=== PATIENT | male | born 1955 | race Caucasian/White ===

== ENCOUNTER 2018-08-31 21:28 | Emergency (ER) | payer MEDICARE, SELFPAY ==
[2018-08-31 21:33] VITALS: PULSE 88; RESP 22; O2SAT 96
[2018-08-31] MEDS: ALBUTEROL/IPRATROPIUM 3 ML AMPUL INH (21:33)
[2018-08-31] MEDS: ALBUTEROL 2.5 MG/3 ML NEB (ADULT) INH ×2 (21:33→23:12)
--- NOTE | 2018-08-31 21:38 | DI.RAD.S_ITS ---
PROCEDURE: XR CHEST 1V INDICATIONS: short of breath TECHNIQUE: One view of the chest was acquired. COMPARISON: [facility], , CHEST 2 VIEW, 09/27/2017, 5:50. FINDINGS: Surgical changes and devices: None. Lungs and pleura: No pleural effusions or pneumothorax. Lungs are clear. Mediastinum: Mediastinal contours appear normal. Heart size is normal. Bones and chest wall: No suspicious bony lesions. Overlying soft tissues appear unremarkable. IMPRESSION: No acute process. Dictated by: Ale Damon M.D. on 08/31/2018 at 21:59 Approved by: Ale Damon M.D. on 08/31/2018 at 21:59
[2018-08-31 21:39] VITALS: BP 149/86; PULSE 96; RESP 20; TEMP 36.6; O2SAT 94
[2018-08-31] MEDS: SODIUM CHLORIDE 0.9% 1,000 ML 1000 ML IV (22:13)
[2018-08-31] MEDS: methylPREDNISolone 125 MG/2 ML VIAL IV (22:14)
[2018-08-31 22:16] LABS: Add Manual Diff / Slide Review NO; Basophils Percent Auto 0.4 % (0-2); Eosinophils Percent Auto 8.4 % (2-4); Hematocrit 42.8 % (41-53); Hemoglobin 14.4 g/dL (13.5-17.5); Lymphocytes Percent Auto 13.8 % (25-40); Mean Corpuscular HGB Conc 33.7 % (30-36); Monocytes Percent Auto 10.6 % (3-14); Neutrophils Absolute Auto 6700 /uL (1500-7000); Neutrophils Percent Auto 66.8 % (50-75); Platelet Count 387 X10^3/uL (150-400); Red Cell Distribution Width 13.7 % (11.6-14.8)
[2018-08-31 22:30] VITALS: BP 150/68; PULSE 90; RESP 27; O2SAT 93
[2018-08-31 22:34] LABS: Prothrombin Time 11.6 SECONDS (10.1-12.7)
[2018-08-31 22:37] LABS: PTT Partial Thromboplastin Tim 33 SECONDS (26.4-36.2)
[2018-08-31 22:39] LABS: Alanine Aminotransferase 29 IU/L (21-72); Albumin 4.3 g/dL (3.5-5.0); Albumin Globulin Ratio 1.4 (1.0-2.8); Alkaline Phosphatase 67 U/L (38-126); Aspartate Aminotransferase 27 IU/L (17-59); BUN Creatinine Ratio 23.3 (6-22); Bilirubin Total 0.9 mg/dL (0.2-1.3); Blood Urea Nitrogen 21 mg/dL (9-20); Calcium 9.2 mg/dL (8.4-10.2); Carbon Dioxide 22 mmol/L (22-32); Chloride 105 mmol/L (98-107); Creatine Kinase 229 U/L (55-170); Estimated Glomerular Filt Rate > 60.0 mL/min (>60); Glucose 96 mg/dL (80-110); HEMOLYSIS < 15 (0-50); Magnesium 1.9 mg/dL (1.6-2.3); Potassium 4.3 mmol/L (3.4-5.1); Sodium 141 mmol/L (137-145); Total Protein 7.3 g/dL (6.3-8.2)
[2018-08-31 22:46] LABS: B Type Natriuretic Peptide < 100 (<100)
[2018-08-31 22:53] LABS: CKMB % Relative Index 0.8 % (1.5-5.0); Creatine Kinase MB 1.77 ng/mL (<2.37); Troponin I < 0.012 ng/mL (0.01-0.034)
[2018-08-31 22:57] LABS: Procalcitonin < 0.05 ng/mL (<0.5)
--- NOTE | 2018-08-31 23:00 | ED_ITS ---
HPI - SOB/Dyspnea General Chief Complaint: Shortness of Breath/Dyspnea Stated Complaint: cant breathe Time Seen by Provider: 08/31/18 21:37 Source: patient Mode of arrival: ambulatory Limitations: no limitations History of Present Illness Patient is a 63-year-old male history of COPD presenting with increasing shortness of breath. He says it has been getting worse over the last few days mostly whenever he goes outside. He has been giving himself his DuoNeb at home he said he had given himself 10 today does not feel like it is helping. He denies any fever he does have some chest tightness high. More sputum production than normal. Typically when he gets like this he is prednisone and antibiotics and gets better. He does also have significant history for coronary artery disease but he does not feel like this is heart pain. No swelling in his legs. He has chronic orthopnea not any worse than normal. MD Complaint: shortness of breath Onset (ago): day(s) Severity: moderate Relieving factors: nothing Exacerbating factors: nothing Related Data Home Medications Medication Instructions Recorded Confirmed aspirin 325 mg PO QDAY #0 06/07/11 ALBUTEROL SULFATE (#VENTOLIN HFA) 0.09 mg IH PRN #0 07/18/11 clopidogrel [Plavix] #0 07/02/16 tiotropium bromide [Spiriva with #0 09/27/17 HandiHaler] Previous Rx's Medication Instructions Recorded hydrocodone-acetaminophen [[place]] 1 - 2 tab PO Q6H PRN #10 tab 07/02/16 tamsulosin [Flomax] 0.4 mg PO QDAY #20 cap 09/11/16 Spacer: Inhaler Spacer Device units #1 09/27/17 doxycycline hyclate 100 mg PO Q12H #20 cap 09/27/17 prednisone 10 mg PO SEE INSTRUCTIONS 12 Days 09/27/17 #0 tab levofloxacin [Levaquin] 750 mg PO DAILY #5 tab 08/31/18 prednisone 50 mg PO DAILY #5 tab 08/31/18 Allergies Allergy/AdvReac Type Severity Reaction Status Date / Time No Known Drug Allergies Allergy Verified 08/31/18 21:39 Review of Systems Review of Systems GENERAL: Denies chills, fatigue, malaise, fever, sweats, travel HEENT: Denies sinus pain, ear pain, sore throat, difficulty swallowing, neck pain RESPIRATORY: See HPI CARDIOVASCULAR: Denies chest pain, palpitations, orthopnea, edema GASTROINTESTINAL: Denies nausea, vomiting, abdominal pain, diarrhea, constipation, melena. : Denies dysuria, frequency, incontinence, hematuria, urinary retention, flank pain. MUSCULOSKELETAL: Denies weakness, joint pain, or bony pain SKIN: No rash, no erythema, no pruritus NEUROLOGIC: Denies weakness, dizziness, headache, numbness, change in speech, confusion PSYCHIATRIC: No concerning psychosocial issues. 12 point review of systems is negative except for those stated above and HPI PFSH Medical History COPD (chronic obstructive pulmonary disease) (Acute) Coronary artery disease (Acute) Social History substance use type: does not use Exam Initial Vital Signs Initial Vital Signs: Vital Signs Pulse Rate 88 08/31/18 21:33 Respiratory Rate 22 08/31/18 21:33 Pulse Oximetry 96 08/31/18 21:33 GENERAL: Alert male appears in mild distress HEENT: Head atraumatic,EOMI, pupils reactive CARDIOVASCULAR: Regular rate and rhythm without murmurs, rubs or gallops. RESPIRATORY: No audible wheezes as difficulty speaking in full sentences but is able to do so no accessory muscle use ABDOMEN: Soft, nontender. Normoactive bowel sounds all 4 quadrants. No guarding or rebound. EXTREMITIES: Normal range of motion, no clubbing or edema. Neurovascularly intact NEUROLOGICAL: Alert and oriented x4.Normal gait and speech. Cranial nerves II through XII grossly intact. SKIN: Warm, dry, no laceration, no petechiae, no rashes or lesions. Course Orders Ordered: ED Orders 08/31/18 21:37 Consult to Respiratory Therapy Evaluate & Treat EKG-12 Lead Stat 08/31/18 21:38 XR chest 1V Stat 08/31/18 22:09 B Type Natriuretic Peptide Stat Complete Blood Count AUTO DIFF Stat Comprehensive Metabolic Panel Stat Lactate (Lactic Acid) Stat Magnesium Stat Partial Thromboplastin Time Stat Procalcitonin Stat Prothrombin Time INR Stat Troponin & CK Cardiac Panel Stat 08/31/18 22:25 Blood Culture Stat Discontinued Medications Albuterol (Ventolin) 2.5 mg INH NOW ONE Stop: 08/31/18 21:38 Last Admin: 08/31/18 21:33 Dose: 2.5 mg Albuterol (Ventolin Hfa Prepack) 1 box MISC SEEINSTR ONE Stop: 08/31/18 23:05 Last Admin: 08/31/18 23:09 Dose: 1 box Albuterol (Ventolin) 2.5 mg INH NOW ONE Stop: 08/31/18 23:05 Last Admin: 08/31/18 23:12 Dose: 2.5 mg Albuterol/Ipratropium (Duoneb) 3 ml INH NOW ONE Stop: 08/31/18 21:38 Last Admin: 08/31/18 21:33 Dose: 3 ml Albuterol/Ipratropium (Duoneb) 3 ml INH NOW ONE Stop: 08/31/18 21:38 Sodium Chloride (Normal Saline 0.9%) 1,000 mls @ 1,000 mls/hr IV BOLUS ONE Stop: 08/31/18 23:06 Last Infusion: 08/31/18 23:40 Dose: 0 mls/hr Admin: 08/31/18 22:13 Dose: 1,000 mls/hr Levofloxacin (Levaquin) 750 mg PO NOW ONE Stop: 08/31/18 23:05 Last Admin: 08/31/18 23:12 Dose: 750 mg Methylprednisolone (Solu-Medrol 125 Mg Vial) 125 mg IV NOW ONE Stop: 08/31/18 21:38 Last Admin: 08/31/18 22:14 Dose: 125 mg Vital Signs - 8 hr 08/31/18 21:33 08/31/18 21:39 08/31/18 22:30 Temperature 97.8 F Pulse Rate 88 96 H 90 Respiratory Rate 22 20 27 H Blood Pressure 149/86 H Blood Pressure [Right Arm] 150/68 H Pulse Oximetry 96 94 93 08/31/18 23:01 08/31/18 23:16 08/31/18 23:48 Temperature Pulse Rate 90 86 90 Respiratory Rate 21 18 14 Blood Pressure Blood Pressure [Right Arm] 140/72 148/79 H Pulse Oximetry 95 96 94 MDM - SOB/Dyspnea Lab Data Attestation: I reviewed the patient's lab results. Result diagrams: 08/31/18 22:09 08/31/18 22:09 Lab Results 08/31/18 08/31/18 08/31/18 Range/Units 22:09 22:09 22:09 WBC 10.0 (4.5-11.0) X10^3/uL RBC 4.80 (4.5-5.9) X10^6/uL Hgb 14.4 (13.5-17.5) g/dL Hct 42.8 (41-53) % MCV 89.0 (80-100) fL MCH 30.0 (26-34) PG MCHC 33.7 (30-36) % RDW 13.7 (11.6-14.8) % Plt Count 387 (150-400) X10^3/uL Neut % (Auto) 66.8 (50-75) % Lymph % (Auto) 13.8 L (25-40) % Kay % (Auto) 10.6 (3-14) % Eos % (Auto) 8.4 H (2-4) % Baso % (Auto) 0.4 (0-2) % Neut # (Auto) 6700 (0368-0779) /uL PT 11.6 (10.1-12.7) SECONDS INR 1.0 (0.9-1.3) APTT 33 (26.4-36.2) SECONDS Sodium (137-145) mmol/L Potassium (3.4-5.1) mmol/L Chloride (98-107) mmol/L Carbon Dioxide (22-32) mmol/L BUN (9-20) mg/dL Creatinine (0.66-1.25) mg/dL Estimated GFR (>60) mL/min BUN/Creatinine Ratio (6-22) Glucose (80-110) mg/dL Lactate (0.7-2.1) mmol/L Calcium (8.4-10.2) mg/dL Magnesium 1.9 (1.6-2.3) mg/dL Total Bilirubin (0.2-1.3) mg/dL AST (17-59) IU/L ALT (21-72) IU/L Alkaline Phosphatase (38-126) U/L Total Creatine Kinase 229 H (55-170) U/L CK-MB (CK-2) 1.77 (<2.37) ng/mL CK-MB (CK-2) Rel Index 0.8 L (1.5-5.0) % Troponin I < 0.012 (0.01-0.034) ng/mL B-Natriuretic Peptide < 100 (<100) Total Protein (6.3-8.2) g/dL Albumin (3.5-5.0) g/dL Globulin (1.7-4.1) g/dL Albumin/Globulin Ratio (1.0-2.8) Procalcitonin (<0.5) ng/mL 08/31/18 08/31/18 08/31/18 Range/Units 22:09 22:09 22:09 WBC (4.5-11.0) X10^3/uL RBC (4.5-5.9) X10^6/uL Hgb (13.5-17.5) g/dL Hct (41-53) % MCV (80-100) fL MCH (26-34) PG MCHC (30-36) % RDW (11.6-14.8) % Plt Count (150-400) X10^3/uL Neut % (Auto) (50-75) % Lymph % (Auto) (25-40) % Kay % (Auto) (3-14) % Eos % (Auto) (2-4) % Baso % (Auto) (0-2) % Neut # (Auto) (1718-0227) /uL PT (10.1-12.7) SECONDS INR (0.9-1.3) APTT (26.4-36.2) SECONDS Sodium 141 (137-145) mmol/L Potassium 4.3 (3.4-5.1) mmol/L Chloride 105 (98-107) mmol/L Carbon Dioxide 22 (22-32) mmol/L BUN 21 H (9-20) mg/dL Creatinine 0.90 (0.66-1.25) mg/dL Estimated GFR > 60.0 (>60) mL/min BUN/Creatinine Ratio 23.3 H (6-22) Glucose 96 (80-110) mg/dL Lactate 1.0 (0.7-2.1) mmol/L Calcium 9.2 (8.4-10.2) mg/dL Magnesium (1.6-2.3) mg/dL Total Bilirubin 0.9 (0.2-1.3) mg/dL AST 27 (17-59) IU/L ALT 29 (21-72) IU/L Alkaline Phosphatase 67 (38-126) U/L Total Creatine Kinase (55-170) U/L CK-MB (CK-2) (<2.37) ng/mL CK-MB (CK-2) Rel Index (1.5-5.0) % Troponin I (0.01-0.034) ng/mL B-Natriuretic Peptide (<100) Total Protein 7.3 (6.3-8.2) g/dL Albumin 4.3 (3.5-5.0) g/dL Globulin 3.0 (1.7-4.1) g/dL Albumin/Globulin Ratio 1.4 (1.0-2.8) Procalcitonin < 0.05 (<0.5) ng/mL Imaging Data Chest x-ray: Radiologist's impression: PROCEDURE: XR CHEST 1V INDICATIONS: short of breath TECHNIQUE: One view of the chest was acquired. COMPARISON: [facility], CHEST 2 VIEW, 09/27/2017, 5:50. FINDINGS: Surgical changes and devices: None. Lungs and pleura: No pleural effusions or pneumothorax. Lungs are clear. Mediastinum: Mediastinal contours appear normal. Heart size is normal. Bones and chest wall: No suspicious bony lesions. Overlying soft tissues appear unremarkable. IMPRESSION: No acute process. Dictated by: Ale Damon M.D. on 08/31/2018 at 21:59 ECG Data Attestation: I personally reviewed and interpreted this ECG as follows: Prior ECG tracings: available for review Interpretation: Normal sinus rhythm rate 89 persistent Q-waves in lead 3 but much improved from [place] [address] elevations no T-wave inversions MDM Narrative Medical decision making narrative: Patient overall is feeling much better after the steroids and bronchodilator treatment. He is given albuterol pre Pack he says his is at out. Discharge Plan Departure Patient Disposition: Home Clinical Impression: Acute exacerbation of chronic obstructive pulmonary disease (COPD) Discharge Date/Time: 08/31/18 23:55 Interventions: ED Discharge Assessment Last Done: 08/31/18 23:59 Instructions: Chronic Obstructive Pulmonary Disease Activity Restrictions/Additional Instructions: *You have been diagnosed with COPD exacerbation *What to do: *Continue to take medications as directed Prednisone 50 mg once a day for 5 days Levaquin 1 tab once a day 5 days *Follow up with your primary care provider in 2-3 days *Return to ER if you should have increasing shortness of breath, increasing chest or any new, worsening or concerning symptoms Prescriptions: New prednisone 50 mg tablet 50 mg PO DAILY Qty: 5 RF: 0 levofloxacin [Levaquin] 750 mg tablet 750 mg PO DAILY Qty: 5 RF: 0 No Action aspirin 325 MG tablet,delayed release (DR/EC) 325 mg PO QDAY Qty: 0 RF: 0 ALBUTEROL SULFATE (#VENTOLIN HFA) 0.09 mg IH PRN Qty: 0 RF: 0 clopidogrel [Plavix] 75 MG tablet Qty: 0 RF: 0 hydrocodone-acetaminophen [[place]] 5 MG/325 MG tablet 1 - 2 tab PO Q6H PRNQty: 10 RF: 0 tamsulosin [Flomax] 0.4 MG capsule,extended release 24hr 0.4 mg PO QDAY Qty: 20 RF: 0 tiotropium bromide [Spiriva with HandiHaler] 18 MCG capsule, w/inhalation device Qty: 0 RF: 0 prednisone 10 MG tablet 10 mg PO SEE INSTRUCTIONS 12 Days Qty: 0 RF: 0 doxycycline hyclate 100 MG capsule 100 mg PO Q12H Qty: 20 RF: 0 Spacer: Inhaler Spacer Device Qty: 1 RF: 0
[2018-08-31 23:01] VITALS: BP 140/72; PULSE 90; RESP 21; O2SAT 95
[2018-08-31] MEDS: ALBUTEROL HFA PREPACK 1 BOX MISC (23:09)
[2018-08-31] MEDS: levoFLOXacin 250 MG TABLET 750 MG PO (23:12)
[2018-08-31 23:16] VITALS: PULSE 86; RESP 18; O2SAT 96
[2018-08-31 23:48] VITALS: BP 148/79; PULSE 90; RESP 14; O2SAT 94
== END 2018-08-31 23:55 | disposition home or self-care (01) ==
PROVIDERS: Emergency Provider Emergency Medicine; PCP Physician Assistant Medical
DX: J44.1 Chronic obstructive pulmonary disease with (acute) exacerbation (principal)
CPT/HCPCS: 36415; 36591; 71045; 80053; 82550; 82553; 83605; 83735; 83880; 84145; 84484; 85025; 85610; 85730; 87040; 93005; 94640; 96361; 96374; 99283; 99285; J2930; J7613

== ENCOUNTER 2018-10-24 17:28 | Emergency (ER) | payer MEDICARE, SELFPAY ==
[2018-10-24 17:34] VITALS: BP 159/97; PULSE 96; RESP 22; TEMP 36.4; O2SAT 96
--- NOTE | 2018-10-24 17:45 | ED.SOB ---
HPI - SOB/Dyspnea <Kavita Castro PA-C - Last Filed: 10/24/18 21:20> General Chief Complaint: Shortness of Breath/Dyspnea Stated Complaint: trouble breathing Time Seen by Provider: 10/24/18 17:44 Source: patient and family Mode of arrival: ambulatory Limitations: no limitations History of Present Illness This 63-year-old male comes to ED due to COPD exacerbation. He states this is typical of his exacerbations. He was out having dinner and became acutely more short of breath. He used his DuoNeb in the car (carries a nebulizer machine), and states this has helped. He has had a gradually worsening flare for some time now, his thinks about 2 or 3 weeks as he has gone through his monthly rescue inhaler in about that time. He has been off of Spiriva for several months due to lack of affordability, and has had 2 flare-ups since then where he will have more tight chest, dyspnea, and wheeze. He denies any new symptoms such as chest pain, fever, recent illness or exposures. He does have more productive cough. He has not had any new swelling in his arms or legs nor pain in the extremities. He the the states that he has not been able to sleep flat for a long time and get short of breath at night, but this is due to back problems and sleep apnea. He states not related to his COPD exacerbations. His rescue inhaler and nebulizers do help him when he has flares. Related Data Home Medications Medication Instructions Recorded Confirmed aspirin 325 mg PO QDAY #0 06/07/11 ALBUTEROL SULFATE (#VENTOLIN HFA) 0.09 mg IH PRN #0 07/18/11 clopidogrel [Plavix] #0 07/02/16 tiotropium bromide [Spiriva with #0 09/27/17 HandiHaler] Previous Rx's Medication Instructions Recorded hydrocodone-acetaminophen [Wild Horse] 1 - 2 tab PO Q6H PRN #10 tab 07/02/16 tamsulosin [Flomax] 0.4 mg PO QDAY #20 cap 09/11/16 Spacer: Inhaler Spacer Device units #1 09/27/17 doxycycline hyclate 100 mg PO Q12H #20 cap 09/27/17 prednisone 10 mg PO SEE INSTRUCTIONS 12 Days 09/27/17 #0 tab levofloxacin [Levaquin] 750 mg PO DAILY #5 tab 08/31/18 prednisone 50 mg PO DAILY #5 tab 08/31/18 albuterol sulfate 2 puff INHALATION Q4-6H PRN #8.5 10/24/18 gram doxycycline monohydrate 100 mg PO BID 7 Days #14 cap 10/24/18 ipratropium-albuterol 3 ml INHALATION Q4-6H PRN #180 ml 10/24/18 prednisone 40 mg PO DAILY #10 tab 10/24/18 Allergies Allergy/AdvReac Type Severity Reaction Status Date / Time No Known Drug Allergies Allergy Verified 08/31/18 21:39 Review of Systems <Kavita Castro PA-C - Last Filed: 10/24/18 21:20> Review of Systems ROS Unobtainable: All systems reviewed & are unremarkable except as noted in HPI and below PFSH <Kavita Castro PA-C - Last Filed: 10/24/18 21:20> Medical History COPD (chronic obstructive pulmonary disease) (Chronic) Coronary artery disease (Chronic) TARIQ (obstructive sleep apnea) (Chronic) Prostate cancer (Chronic) Family History Other No pertinent family history Social History substance use type: does not use Family History Other No pertinent family history Social History substance use type: does not use Comment: Former smoker Exam <MENDY Lin Last Filed: 10/24/18 21:20> Narrative Exam Narrative: GENERAL APPEARANCE: Patient sitting comfortably, in no distress. HEENT: PERRL, EOMI, normal oropharynx NECK/THYROID: Neck supple, no JVD, no cervical lymphadenopathy. LUNGS: Coarse breath sounds with generalized wheezes and rhonchi, no crackles. Intermittent cough on exam. Able to speak in complete sentences HEART: RRR without murmur, nl S1, S2, no S3 or S4. EXTREMITIES: No cyanosis, no edema, no calf tenderness Initial Vital Signs Initial Vital Signs: Vital Signs Temperature 97.6 F 10/24/18 17:34 Pulse Rate 96 H 10/24/18 17:34 Respiratory Rate 22 10/24/18 17:34 Blood Pressure 159/97 H 10/24/18 17:34 Pulse Oximetry 96 10/24/18 17:34 <Umair Lozoya DO - Last Filed: 10/24/18 22:32> Initial Vital Signs Initial Vital Signs: Vital Signs Temperature 97.6 F 10/24/18 17:34 Pulse Rate 96 H 10/24/18 17:34 Respiratory Rate 22 10/24/18 17:34 Blood Pressure 159/97 H 10/24/18 17:34 Pulse Oximetry 96 10/24/18 17:34 Course <Kavita Castro PA-C - Last Filed: 10/24/18 21:20> Additional Information: Following nebulizer treatments and medications, patient is feeling markedly improved which is typical for him he says. He still had wheezes but moving substantially more air. He will continue doxycycline tomorrow along with nebulizer and albuterol as needed and prednisone. He agrees to follow up with PCP this week for recheck to determine steroid taper. Also advised to check on patient assistance for Spiriva as he has had more numerous in severe exacerbations without this. He agreed to return if any acutely worsening symptoms again while awaiting follow-up. Orders Ordered: ED Orders 10/24/18 17:34 EKG-12 Lead Stat 10/24/18 17:45 XR chest 2V Stat B Type Natriuretic Peptide Stat Complete Blood Count AUTO DIFF Stat Comprehensive Metabolic Panel Stat Discontinued Medications Albuterol (Ventolin) 2.5 mg INH NOW ONE Stop: 10/24/18 17:46 Last Admin: 10/24/18 18:30 Dose: 2.5 mg Albuterol (Ventolin) 2.5 mg INH NOW ONE Stop: 10/24/18 19:43 Last Admin: 10/24/18 20:02 Dose: 2.5 mg Albuterol/Ipratropium (Duoneb) 3 ml INH NOW ONE Stop: 10/24/18 17:46 Last Admin: 10/24/18 17:49 Dose: 3 ml Doxycycline Hyclate (Vibramycin) 100 mg PO NOW ONE Stop: 10/24/18 19:43 Last Admin: 10/24/18 19:45 Dose: 100 mg Methylprednisolone (Solu-Medrol 125 Mg Vial) 125 mg IV NOW ONE Stop: 10/24/18 18:21 Last Admin: 10/24/18 18:23 Dose: 125 mg Vital Signs - 8 hr 10/24/18 17:34 10/24/18 18:04 10/24/18 19:01 Temperature 97.6 F Pulse Rate 96 H 88 75 Respiratory Rate 22 Blood Pressure 159/97 H Blood Pressure [Right Arm] 106/67 Pulse Oximetry 96 97 99 10/24/18 20:02 Temperature Pulse Rate Respiratory Rate Blood Pressure Blood Pressure [Right Arm] Pulse Oximetry 99 <Umair Lozoya DO - Last Filed: 10/24/18 22:32> Orders Ordered: ED Orders 10/24/18 17:34 EKG-12 Lead Stat 10/24/18 17:45 XR chest 2V Stat B Type Natriuretic Peptide Stat Complete Blood Count AUTO DIFF Stat Comprehensive Metabolic Panel Stat Discontinued Medications Albuterol (Ventolin) 2.5 mg INH NOW ONE Stop: 10/24/18 17:46 Last Admin: 10/24/18 18:30 Dose: 2.5 mg Albuterol (Ventolin) 2.5 mg INH NOW ONE Stop: 10/24/18 19:43 Last Admin: 10/24/18 20:02 Dose: 2.5 mg Albuterol/Ipratropium (Duoneb) 3 ml INH NOW ONE Stop: 10/24/18 17:46 Last Admin: 10/24/18 17:49 Dose: 3 ml Doxycycline Hyclate (Vibramycin) 100 mg PO NOW ONE Stop: 10/24/18 19:43 Last Admin: 10/24/18 19:45 Dose: 100 mg Methylprednisolone (Solu-Medrol 125 Mg Vial) 125 mg IV NOW ONE Stop: 10/24/18 18:21 Last Admin: 10/24/18 18:23 Dose: 125 mg Vital Signs - 8 hr 10/24/18 17:34 10/24/18 18:04 10/24/18 19:01 Temperature 97.6 F Pulse Rate 96 H 88 75 Respiratory Rate 22 Blood Pressure 159/97 H Blood Pressure [Right Arm] 106/67 Pulse Oximetry 96 97 99 10/24/18 20:02 Temperature Pulse Rate Respiratory Rate Blood Pressure Blood Pressure [Right Arm] Pulse Oximetry 99 MDM - SOB/Dyspnea <Kavita Castro PA-C - Last Filed: 10/24/18 21:20> Lab Data Attestation: I reviewed the patient's lab results. Result diagrams: 10/24/18 17:45 10/24/18 17:45 Lab Results 10/24/18 10/24/18 Range/Units 17:45 17:45 WBC 6.1 (4.5-11.0) X10^3/uL RBC 4.57 (4.5-5.9) X10^6/uL Hgb 13.6 (13.5-17.5) g/dL Hct 41.0 (41-53) % MCV 89.9 (80-100) fL MCH 29.8 (26-34) PG MCHC 33.2 (30-36) % RDW 14.0 (11.6-14.8) % Plt Count 362 (150-400) X10^3/uL Neut % (Auto) 59.7 (50-75) % Lymph % (Auto) 14.5 L (25-40) % [place] % (Auto) 12.8 (3-14) % Eos % (Auto) 12.2 H (2-4) % Baso % (Auto) 0.8 (0-2) % Neut # (Auto) 3600 (7276-7466) /uL Lymph # (Auto) 900 L (3506-0343) /uL [place] # (Auto) 800 (0-900) /uL Eos # (Auto) 700 H (0-450) /uL Baso # (Auto) 0 (0-100) /uL Sodium 138 (137-145) mmol/L Potassium 3.9 (3.4-5.1) mmol/L Chloride 102 (98-107) mmol/L Carbon Dioxide 25 (22-32) mmol/L BUN 17 (9-20) mg/dL Creatinine 0.80 (0.66-1.25) mg/dL Estimated GFR > 60.0 (>60) mL/min BUN/Creatinine Ratio 21.3 (6-22) Glucose 130 H (80-110) mg/dL Calcium 9.1 (8.4-10.2) mg/dL Total Bilirubin 0.9 (0.2-1.3) mg/dL AST 25 (17-59) IU/L ALT 30 (21-72) IU/L Alkaline Phosphatase 61 (38-126) U/L B-Natriuretic Peptide < 100 (<100) Total Protein 7.2 (6.3-8.2) g/dL Albumin 4.2 (3.5-5.0) g/dL Globulin 3.0 (1.7-4.1) g/dL Albumin/Globulin Ratio 1.4 (1.0-2.8) Imaging Data Chest x-ray: Radiologist's impression: Chart Viewer Diagnostics DATE TYPE STATUS AUTHOR Hx 10/24/18 17:45 Alfredito Flores 08/31/18 21:38 Ale Damon Jack N 63, M0 1955 REG ER, ED - Main ED: R11 104.326kg Shortness of Breath/Dyspnea Search Chart NF - Not included in interaction checking ONSET Today 20:02 Bebo Marcano N 63 M [address] [address] XRay Report Signed Patient: Bebo Marcano NMR#: [id number] : 1955cct:[id number] Age/Sex: 63 / MDate of Service: 10/24/18 Loc: ED Accession Number: [id number] Procedure: XR chest 2V Ordering Provider: Kavita Castro P.A-C PROCEDURE: XR CHEST 2V INDICATIONS: copd exac/SOB TECHNIQUE: 2 views of the chest were acquired. COMPARISON: [facility], , XR CHEST 1V, 08/31/2018, 22:01. FINDINGS: Surgical changes and devices: None. Lungs and pleura: Lungs are clear. No pleural effusions or pneumothorax. Mediastinum: Mediastinal contours are normal. Heart size is normal. Bones and chest wall: No suspicious bony abnormalities. Soft tissues appear unremarkable. IMPRESSION: No acute disease Dictated by: Alfredito Flores M.D. on 10/24/2018 at 18:07 Approved by: Alfredito Flores M.D. on 10/24/2018 at 18:08 ECG Data Attestation: I personally reviewed and interpreted this ECG as follows: (Normal sinus rhythm rate 88, no acute change from 08/22) Prior ECG tracings: available for review <Umair Lozoya DO - Last Filed: 10/24/18 22:32> Lab Data Lab Results 10/24/18 10/24/18 Range/Units 17:45 17:45 WBC 6.1 (4.5-11.0) X10^3/uL RBC 4.57 (4.5-5.9) X10^6/uL Hgb 13.6 (13.5-17.5) g/dL Hct 41.0 (41-53) % MCV 89.9 (80-100) fL MCH 29.8 (26-34) PG MCHC 33.2 (30-36) % RDW 14.0 (11.6-14.8) % Plt Count 362 (150-400) X10^3/uL Neut % (Auto) 59.7 (50-75) % Lymph % (Auto) 14.5 L (25-40) % [place] % (Auto) 12.8 (3-14) % Eos % (Auto) 12.2 H (2-4) % Baso % (Auto) 0.8 (0-2) % Neut # (Auto) 3600 (9322-6296) /uL Lymph # (Auto) 900 L (8697-9684) /uL [place] # (Auto) 800 (0-900) /uL Eos # (Auto) 700 H (0-450) /uL Baso # (Auto) 0 (0-100) /uL Sodium 138 (137-145) mmol/L Potassium 3.9 (3.4-5.1) mmol/L Chloride 102 (98-107) mmol/L Carbon Dioxide 25 (22-32) mmol/L BUN 17 (9-20) mg/dL Creatinine 0.80 (0.66-1.25) mg/dL Estimated GFR > 60.0 (>60) mL/min BUN/Creatinine Ratio 21.3 (6-22) Glucose 130 H (80-110) mg/dL Calcium 9.1 (8.4-10.2) mg/dL Total Bilirubin 0.9 (0.2-1.3) mg/dL AST 25 (17-59) IU/L ALT 30 (21-72) IU/L Alkaline Phosphatase 61 (38-126) U/L B-Natriuretic Peptide < 100 (<100) Total Protein 7.2 (6.3-8.2) g/dL Albumin 4.2 (3.5-5.0) g/dL Globulin 3.0 (1.7-4.1) g/dL Albumin/Globulin Ratio 1.4 (1.0-2.8) Discharge Plan Departure Patient Disposition: Home Clinical Impression: Acute exacerbation of chronic obstructive airways disease Discharge Date/Time: 10/24/18 20:00 Interventions: ED Discharge Assessment Last Done: 10/24/18 20:00 Instructions: DI for Chronic Obstructive Pulmonary Disease Activity Restrictions/Additional Instructions: Since you are feeling better, you can return home this evening and monitor. Please continue your nebulizer as often as needed. 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 I have also sent in a refill on your nebulizer medicine and inhaler. Return as we talked about if you are feeling acutely worse again. Otherwise, please follow-up with your PCP office by the end of the week for recheck and to determine whether you need to get any changes in your steroids Prescriptions: New ipratropium-albuterol 0.5 mg-3 mg(2.5 mg base)/3 mL solution for nebulization 3 ml INHALATION Q4-6H PRN (Reason: shortness of breath or wheezing) Qty: 180 RF: 0 prednisone 20 mg tablet 40 mg PO DAILY Qty: 10 RF: 0 doxycycline monohydrate 100 mg capsule 100 mg PO BID 7 Days Qty: 14 RF: 0 albuterol sulfate 90 mcg/actuation HFA aerosol inhaler 2 puff INHALATION Q4-6H PRN (Reason: shortness of breath or wheezing) Qty: 8.5 RF: 0 No Action aspirin 325 MG tablet,delayed release (DR/EC) 325 mg PO QDAY Qty: 0 RF: 0 ALBUTEROL SULFATE (#VENTOLIN HFA) 0.09 mg IH PRN Qty: 0 RF: 0 clopidogrel [Plavix] 75 MG tablet Qty: 0 RF: 0 hydrocodone-acetaminophen [Wild Horse] 5 MG/325 MG tablet 1 - 2 tab PO Q6H PRNQty: 10 RF: 0 tamsulosin [Flomax] 0.4 MG capsule,extended release 24hr 0.4 mg PO QDAY Qty: 20 RF: 0 tiotropium bromide [Spiriva with HandiHaler] 18 MCG capsule, w/inhalation device Qty: 0 RF: 0 prednisone 10 MG tablet 10 mg PO SEE INSTRUCTIONS 12 Days Qty: 0 RF: 0 doxycycline hyclate 100 MG capsule 100 mg PO Q12H Qty: 20 RF: 0 Spacer: Inhaler Spacer Device Qty: 1 RF: 0 prednisone 50 mg tablet 50 mg PO DAILY Qty: 5 RF: 0 levofloxacin [Levaquin] 750 mg tablet 750 mg PO DAILY Qty: 5 RF: 0 Referrals: Kary Turner PA-C [Primary Care Provider] - <Umair Lozoya DO - Last Filed: 10/24/18 22:32> Cosign ED Attending Matthew Attestation: I was immediately available in the department for consultation. Documentation has been reviewed. I agree with assessment and plan.
[2018-10-24] MEDS: ALBUTEROL/IPRATROPIUM 3 ML AMPUL INH (17:49)
[2018-10-24 17:58] LABS: Add Manual Diff / Slide Review NO; Basophils Absolute Auto 0 /uL (0-100); Basophils Percent Auto 0.8 % (0-2); Eosinophils Absolute Auto 700 /uL (0-450); Eosinophils Percent Auto 12.2 % (2-4); Hemoglobin 13.6 g/dL (13.5-17.5); Lymphocytes Absolute Auto 900 /uL (1100-4500); Lymphocytes Percent Auto 14.5 % (25-40); Mean Corpuscular HGB Conc 33.2 % (30-36); Mean Corpuscular Hemoglobin 29.8 PG (26-34); Mean Corpuscular Volume 89.9 fL (80-100); Monocytes Absolute Auto 800 /uL (0-900); Monocytes Percent Auto 12.8 % (3-14); Neutrophils Absolute Auto 3600 /uL (1500-7000); Neutrophils Percent Auto 59.7 % (50-75); Platelet Count 362 X10^3/uL (150-400); Red Blood Cell Count 4.57 X10^6/uL (4.5-5.9); White Blood Cell Count 6.1 X10^3/uL (4.5-11.0)
--- NOTE | 2018-10-24 18:01 | ED_ITS ---
HPI - SOB/Dyspnea <Kavita Castro PA-C - Last Filed: 10/24/18 21:20> General Chief Complaint: Shortness of Breath/Dyspnea Stated Complaint: trouble breathing Time Seen by Provider: 10/24/18 17:44 Source: patient and family Mode of arrival: ambulatory Limitations: no limitations History of Present Illness This 63-year-old male comes to ED due to COPD exacerbation. He states this is typical of his exacerbations. He was out having dinner and became acutely more short of breath. He used his DuoNeb in the car (carries a nebulizer machine), and states this has helped. He has had a gradually worsening flare for some time now, his thinks about 2 or 3 weeks as he has gone through his monthly rescue inhaler in about that time. He has been off of Spiriva for several months due to lack of affordability, and has had 2 flare-ups since then where he will have more tight chest, dyspnea, and wheeze. He denies any new symptoms such as chest pain, fever, recent illness or exposures. He does have more produ ctive cough. He has not had any new swelling in his arms or legs nor pain in the extremities. He the the states that he has not been able to sleep flat for a long time and get short of breath at night, but this is due to back problems and sleep apnea. He states not related to his COPD exacerbations. His rescue inhaler and nebulizers do help him when he has flares. Related Data Home Medications Medication Instructions Recorded Confirmed aspirin 325 mg PO QDAY #0 06/07/11 ALBUTEROL SULFATE (#VENTOLIN HFA) 0.09 mg IH PRN #0 07/18/11 clopidogrel [Plavix] #0 07/02/16 tiotropium bromide [Spiriva with #0 09/27/17 HandiHaler] Previous Rx's Medication Instructions Recorded hydrocodone-acetaminophen [[place]] 1 - 2 tab PO Q6H PRN #10 tab 07/02/16 tamsulosin [Flomax] 0.4 mg PO QDAY #20 cap 09/11/16 Spacer: Inhaler Spacer Device units #1 09/27/17 doxycycline hyclate 100 mg PO Q12H #20 cap 09/27/17 prednisone 10 mg PO SEE INSTRUCTIONS 12 Days 09/27/17 #0 tab levofloxacin [Levaquin] 750 mg PO DAILY #5 tab 08/31/18 prednisone 50 mg PO DAILY #5 tab 08/31/18 albuterol sulfate 2 puff INHALATION Q4-6H PRN #8.5 10/24/18 gram doxycycline monohydrate 100 mg PO BID 7 Days #14 cap 10/24/18 ipratropium-albuterol 3 ml INHALATION Q4-6H PRN #180 ml 10/24/18 prednisone 40 mg PO DAILY #10 tab 10/24/18 Allergies Allergy/AdvReac Type Severity Reaction Status Date / Time No Known Drug Allergies Allergy Verified 08/31/18 21:39 Review of Systems <Kavita Castro PA-C - Last Filed: 10/24/18 21:20> Review of Systems ROS Unobtainable: All systems reviewed & are unremarkable except as noted in HPI and below PFSH <Kavita Castro PA-C - Last Filed: 10/24/18 21:20> Medical History COPD (chronic obstructive pulmonary disease) (Chronic) Coronary artery disease (Chronic) TARIQ (obstructive sleep apnea) (Chronic) Prostate cancer (Chronic) Family History Other No pertinent family history Social History substance use type: does not use Family History Other No pertinent family history Social History substance use type: does not use Comment: Former smoker Exam <Kavita Castro PA-C - Last Filed: 10/24/18 21:20> Narrative Exam Narrative: GENERAL APPEARANCE: Patient sitting comfortably, in no distress. HEENT: PERRL, EOMI, normal oropharynx NECK/THYROID: Neck supple, no JVD, no cervical lymphadenopathy. LUNGS: Coarse breath sounds with generalized wheezes and rhonchi, no crackles. Intermittent cough on exam. Able to speak in complete sentences HEART: RRR without murmur, nl S1, S2, no S3 or S4. EXTREMITIES: No cyanosis, no edema, no calf tenderness Initial Vital Signs Initial Vital Signs: Vital Signs Temperature 97.6 F 10/24/18 17:34 Pulse Rate 96 H 10/24/18 17:34 Respiratory Rate 22 10/24/18 17:34 Blood Pressure 159/97 H 10/24/18 17:34 Pulse Oximetry 96 10/24/18 17:34 <Umair Lozoya DO - Last Filed: 10/24/18 22:32> Initial Vital Signs Initial Vital Signs: Vital Signs Temperature 97.6 F 10/24/18 17:34 Pulse Rate 96 H 10/24/18 17:34 Respiratory Rate 22 10/24/18 17:34 Blood Pressure 159/97 H 10/24/18 17:34 Pulse Oximetry 96 10/24/18 17:34 Course <Kavita Castro PA-C - Last Filed: 10/24/18 21:20> Additional Information: Following nebulizer treatments and medications, patient is feeling markedly improved which is typical for him he says. He still had wheezes but moving substantially more air. He will continue doxycycline tomorrow along with nebulizer and albuterol as needed and prednisone. He agrees to follow up with PCP this week for recheck to determine steroid taper. Also advised to check on patient assistance for Spiriva as he has had more numerous in severe exacerbations without this. He agreed to return if any acutely worsening symptoms again while awaiting follow-up. Orders Ordered: ED Orders 10/24/18 17:34 EKG-12 Lead Stat 10/24/18 17:45 XR chest 2V Stat B Type Natriuretic Peptide Stat Complete Blood Count AUTO DIFF Stat Comprehensive Metabolic Panel Stat Discontinued Medications Albuterol (Ventolin) 2.5 mg INH NOW ONE Stop: 10/24/18 17:46 Last Admin: 10/24/18 18:30 Dose: 2.5 mg Albuterol (Ventolin) 2.5 mg INH NOW ONE Stop: 10/24/18 19:43 Last Admin: 10/24/18 20:02 Dose: 2.5 mg Albuterol/Ipratropium (Duoneb) 3 ml INH NOW ONE Stop: 10/24/18 17:46 Last Admin: 10/24/18 17:49 Dose: 3 ml Doxycycline Hyclate (Vibramycin) 100 mg PO NOW ONE Stop: 10/24/18 19:43 Last Admin: 10/24/18 19:45 Dose: 100 mg Methylprednisolone (Solu-Medrol 125 Mg Vial) 125 mg IV NOW ONE Stop: 10/24/18 18:21 Last Admin: 10/24/18 18:23 Dose: 125 mg Vital Signs - 8 hr 10/24/18 17:34 10/24/18 18:04 10/24/18 19:01 Temperature 97.6 F Pulse Rate 96 H 88 75 Respiratory Rate 22 Blood Pressure 159/97 H Blood Pressure [Right Arm] 106/67 Pulse Oximetry 96 97 99 10/24/18 20:02 Temperature Pulse Rate Respiratory Rate Blood Pressure Blood Pressure [Right Arm] Pulse Oximetry 99 <Umair Lozoya DO - Last Filed: 10/24/18 22:32> Orders Ordered: ED Orders 10/24/18 17:34 EKG-12 Lead Stat 10/24/18 17:45 XR chest 2V Stat B Type Natriuretic Peptide Stat Complete Blood Count AUTO DIFF Stat Comprehensive Metabolic Panel Stat Discontinued Medications Albuterol (Ventolin) 2.5 mg INH NOW ONE Stop: 10/24/18 17:46 Last Admin: 10/24/18 18:30 Dose: 2.5 mg Albuterol (Ventolin) 2.5 mg INH NOW ONE Stop: 10/24/18 19:43 Last Admin: 10/24/18 20:02 Dose: 2.5 mg Albuterol/Ipratropium (Duoneb) 3 ml INH NOW ONE Stop: 10/24/18 17:46 Last Admin: 10/24/18 17:49 Dose: 3 ml Doxycycline Hyclate (Vibramycin) 100 mg PO NOW ONE Stop: 10/24/18 19:43 Last Admin: 10/24/18 19:45 Dose: 100 mg Methylprednisolone (Solu-Medrol 125 Mg Vial) 125 mg IV NOW ONE Stop: 10/24/18 18:21 Last Admin: 10/24/18 18:23 Dose: 125 mg Vital Signs - 8 hr 10/24/18 17:34 10/24/18 18:04 10/24/18 19:01 Temperature 97.6 F Pulse Rate 96 H 88 75 Respiratory Rate 22 Blood Pressure 159/97 H Blood Pressure [Right Arm] 106/67 Pulse Oximetry 96 97 99 10/24/18 20:02 Temperature Pulse Rate Respiratory Rate Blood Pressure Blood Pressure [Right Arm] Pulse Oximetry 99 MDM - SOB/Dyspnea <Kavita Castro PA-C - Last Filed: 10/24/18 21:20> Lab Data Attestation: I reviewed the patient's lab results. Result diagrams: 10/24/18 17:45 10/24/18 17:45 Lab Results 10/24/18 10/24/18 Range/Units 17:45 17:45 WBC 6.1 (4.5-11.0) X10^3/uL RBC 4.57 (4.5-5.9) X10^6/uL Hgb 13.6 (13.5-17.5) g/dL Hct 41.0 (41-53) % MCV 89.9 (80-100) fL MCH 29.8 (26-34) PG MCHC 33.2 (30-36) % RDW 14.0 (11.6-14.8) % Plt Count 362 (150-400) X10^3/uL Neut % (Auto) 59.7 (50-75) % Lymph % (Auto) 14.5 L (25-40) % [place] % (Auto) 12.8 (3-14) % Eos % (Auto) 12.2 H (2-4) % Baso % (Auto) 0.8 (0-2) % Neut # (Auto) 3600 (6187-3569) /uL Lymph # (Auto) 900 L (7535-3336) /uL [place] # (Auto) 800 (0-900) /uL Eos # (Auto) 700 H (0-450) /uL Baso # (Auto) 0 (0-100) /uL Sodium 138 (137-145) mmol/L Potassium 3.9 (3.4-5.1) mmol/L Chloride 102 (98-107) mmol/L Carbon Dioxide 25 (22-32) mmol/L BUN 17 (9-20) mg/dL Creatinine 0.80 (0.66-1.25) mg/dL Estimated GFR > 60.0 (>60) mL/min BUN/Creatinine Ratio 21.3 (6-22) Glucose 130 H (80-110) mg/dL Calcium 9.1 (8.4-10.2) mg/dL Total Bilirubin 0.9 (0.2-1.3) mg/dL AST 25 (17-59) IU/L ALT 30 (21-72) IU/L Alkaline Phosphatase 61 (38-126) U/L B-Natriuretic Peptide < 100 (<100) Total Protein 7.2 (6.3-8.2) g/dL Albumin 4.2 (3.5-5.0) g/dL Globulin 3.0 (1.7-4.1) g/dL Albumin/Globulin Ratio 1.4 (1.0-2.8) Imaging Data Chest x-ray: Radiologist's impression: Chart Viewer Diagnostics DATE TYPE STATUS AUTHOR Hx 10/24/18 17:45 Alfredito Flores 08/31/18 21:38 DamonAle jaime Jack N 63, M0 1955 REG ER, ED - Main ED: R11 104.326kg Shortness of Breath/Dyspnea Search Chart NF - Not included in interaction checking ONSET Today 20:02 Bebo Marcano N 63 M [address] [address] XRay Report Signed Patient: Bebo Marcano NMR#: [id number] : 1955cct:[id number] Age/Sex: 63 / MDate of Service: 10/24/18 Loc: ED Accession Number: [id number] Procedure: XR chest 2V Ordering Provider: Kavita Castro P.A-C PROCEDURE: XR CHEST 2V INDICATIONS: copd exac/SOB TECHNIQUE: 2 views of the chest were acquired. COMPARISON: [facility], , XR CHEST 1V, 08/31/2018, 22:01. FINDINGS: Surgical changes and devices: None. Lungs and pleura: Lungs are clear. No pleural effusions or pneumothorax. Mediastinum: Mediastinal contours are normal. Heart size is normal. Bones and chest wall: No suspicious bony abnormalities. Soft tissues appear unremarkable. IMPRESSION: No acute disease Dictated by: Alfredito Flores M.D. on 10/24/2018 at 18:07 Approved by: Alfredito Flores M.D. on 10/24/2018 at 18:08 ECG Data Attestation: I personally reviewed and interpreted this ECG as follows: (Normal sinus rhythm rate 88, no acute change from 08/22) Prior ECG tracings: available for review <Umair Lozoya DO - Last Filed: 10/24/18 22:32> Lab Data Lab Results 10/24/18 10/24/18 Range/Units 17:45 17:45 WBC 6.1 (4.5-11.0) X10^3/uL RBC 4.57 (4.5-5.9) X10^6/uL Hgb 13.6 (13.5-17.5) g/dL Hct 41.0 (41-53) % MCV 89.9 (80-100) fL MCH 29.8 (26-34) PG MCHC 33.2 (30-36) % RDW 14.0 (11.6-14.8) % Plt Count 362 (150-400) X10^3/uL Neut % (Auto) 59.7 (50-75) % Lymph % (Auto) 14.5 L (25-40) % [place] % (Auto) 12.8 (3-14) % Eos % (Auto) 12.2 H (2-4) % Baso % (Auto) 0.8 (0-2) % Neut # (Auto) 3600 (9122-4236) /uL Lymph # (Auto) 900 L (3116-9875) /uL [place] # (Auto) 800 (0-900) /uL Eos # (Auto) 700 H (0-450) /uL Baso # (Auto) 0 (0-100) /uL Sodium 138 (137-145) mmol/L Potassium 3.9 (3.4-5.1) mmol/L Chloride 102 (98-107) mmol/L Carbon Dioxide 25 (22-32) mmol/L BUN 17 (9-20) mg/dL Creatinine 0.80 (0.66-1.25) mg/dL Estimated GFR > 60.0 (>60) mL/min BUN/Creatinine Ratio 21.3 (6-22) Glucose 130 H (80-110) mg/dL Calcium 9.1 (8.4-10.2) mg/dL Total Bilirubin 0.9 (0.2-1.3) mg/dL AST 25 (17-59) IU/L ALT 30 (21-72) IU/L Alkaline Phosphatase 61 (38-126) U/L B-Natriuretic Peptide < 100 (<100) Total Protein 7.2 (6.3-8.2) g/dL Albumin 4.2 (3.5-5.0) g/dL Globulin 3.0 (1.7-4.1) g/dL Albumin/Globulin Ratio 1.4 (1.0-2.8) Discharge Plan Departure Patient Disposition: Home Clinical Impression: Acute exacerbation of chronic obstructive airways disease Discharge Date/Time: 10/24/18 20:00 Interventions: ED Discharge Assessment Last Done: 10/24/18 20:00 Instructions: DI for Chronic Obstructive Pulmonary Disease Activity Restrictions/Additional Instructions: Since you are feeling better, you can return home this evening and monitor. Please continue your nebulizer as often as needed. machinist set up your medications as soon as the pharmacy opens tomorrow so you can take your next dose of doxycycline as well as the prednisone. I have also sent in a refill on your nebulizer medicine and inhaler. Return as we talked about if you are feeling acutely worse again. Otherwise, please follow-up with your PCP office by the end of the week for recheck and to determine whether you need to get any changes in your steroids Prescriptions: New ipratropium-albuterol 0.5 mg-3 mg(2.5 mg base)/3 mL solution for nebulization 3 ml INHALATION Q4-6H PRN (Reason: shortness of breath or wheezing) Qty: 180 RF: 0 prednisone 20 mg tablet 40 mg PO DAILY Qty: 10 RF: 0 doxycycline monohydrate 100 mg capsule 100 mg PO BID 7 Days Qty: 14 RF: 0 albuterol sulfate 90 mcg/actuation HFA aerosol inhaler 2 puff INHALATION Q4-6H PRN (Reason: shortness of breath or wheezing) Qty: 8.5 RF: 0 No Action aspirin 325 MG tablet,delayed release (DR/EC) 325 mg PO QDAY Qty: 0 RF: 0 ALBUTEROL SULFATE (#VENTOLIN HFA) 0.09 mg IH PRN Qty: 0 RF: 0 clopidogrel [Plavix] 75 MG tablet Qty: 0 RF: 0 hydrocodone-acetaminophen [[place]] 5 MG/325 MG tablet 1 - 2 tab PO Q6H PRNQty: 10 RF: 0 tamsulosin [Flomax] 0.4 MG capsule,extended release 24hr 0.4 mg PO QDAY Qty: 20 RF: 0 tiotropium bromide [Spiriva with HandiHaler] 18 MCG capsule, w/inhalation device Qty: 0 RF: 0 prednisone 10 MG tablet 10 mg PO SEE INSTRUCTIONS 12 Days Qty: 0 RF: 0 doxycycline hyclate 100 MG capsule 100 mg PO Q12H Qty: 20 RF: 0 Spacer: Inhaler Spacer Device Qty: 1 RF: 0 prednisone 50 mg tablet 50 mg PO DAILY Qty: 5 RF: 0 levofloxacin [Levaquin] 750 mg tablet 750 mg PO DAILY Qty: 5 RF: 0 Referrals: Kary Turner PA-C [Primary Care Provider] - <Umair Lozoya DO - Last Filed: 10/24/18 22:32> Cosign ED Attending Matthew Attestation: I was immediately available in the department for consultation. Documentation has been reviewed. I agree with assessment and plan.
[2018-10-24 18:04] VITALS: PULSE 88; O2SAT 97
[2018-10-24 18:04] LABS: Alanine Aminotransferase 30 IU/L (21-72); Albumin 4.2 g/dL (3.5-5.0); Albumin Globulin Ratio 1.4 (1.0-2.8); Alkaline Phosphatase 61 U/L (38-126); Aspartate Aminotransferase 25 IU/L (17-59); BUN Creatinine Ratio 21.3 (6-22); Bilirubin Total 0.9 mg/dL (0.2-1.3); Blood Urea Nitrogen 17 mg/dL (9-20); Calcium 9.1 mg/dL (8.4-10.2); Carbon Dioxide 25 mmol/L (22-32); Chloride 102 mmol/L (98-107); Estimated Glomerular Filt Rate > 60.0 mL/min (>60); Glucose 130 mg/dL (80-110); HEMOLYSIS < 15 (0-50); Potassium 3.9 mmol/L (3.4-5.1); Sodium 138 mmol/L (137-145); Total Protein 7.2 g/dL (6.3-8.2)
[2018-10-24 18:23] LABS: B Type Natriuretic Peptide < 100 (<100)
[2018-10-24] MEDS: methylPREDNISolone 125 MG/2 ML VIAL IV (18:23)
[2018-10-24] MEDS: ALBUTEROL 2.5 MG/3 ML NEB (ADULT) INH ×2 (18:30→20:02)
[2018-10-24 19:01] VITALS: BP 106/67; PULSE 75; O2SAT 99
[2018-10-24] MEDS: DOXYCYCLINE HYCLATE 100 MG TABLET PO (19:45)
[2018-10-24 20:02] VITALS: O2SAT 99
== END 2018-10-24 20:00 | disposition home or self-care (01) ==
PROVIDERS: Emergency Provider Internal Medicine; PCP Physician Assistant Medical
DX: J44.1 Chronic obstructive pulmonary disease with (acute) exacerbation (principal)
CPT/HCPCS: 36591; 71046; 80053; 83880; 85025; 93005; 94640; 96374; 99283; 99285; J2930; J7613

== ENCOUNTER 2019-01-17 19:53 | Emergency (ER) | payer MEDICARE, SELFPAY ==
--- NOTE | 2019-01-17 20:06 | DI.RAD.S_ITS ---
PROCEDURE: XR CHEST 1V INDICATIONS: COPD. Dyspnea TECHNIQUE: One view of the chest was acquired. COMPARISON: None. FINDINGS: Surgical changes and devices: None. Lungs and pleura: Lungs are clear. No pleural effusions or pneumothorax. Mediastinum: Mediastinal contours appear normal. Heart size is normal. Bones and chest wall: No suspicious bony lesions. Overlying soft tissues appear unremarkable. IMPRESSION: No acute disease. Dictated by: Alfredito Flores M.D. on 01/17/2019 at 20:32 Approved by: Alfredito Flores M.D. on 01/17/2019 at 20:33
[2019-01-17 20:10] VITALS: BP 185/88; PULSE 94; RESP 30; TEMP 36.6; O2SAT 95
[2019-01-17 20:13] LABS: Add Manual Diff / Slide Review NO; Basophils Absolute Auto 0 /uL (0-100); Basophils Percent Auto 0.6 % (0-2); Eosinophils Absolute Auto 600 /uL (0-450); Eosinophils Percent Auto 9.2 % (2-4); Hematocrit 42.7 % (41-53); Hemoglobin 14.3 g/dL (13.5-17.5); Lymphocytes Absolute Auto 1000 /uL (1100-4500); Mean Corpuscular HGB Conc 33.5 % (30-36); Mean Corpuscular Hemoglobin 30.1 PG (26-34); Mean Corpuscular Volume 89.7 fL (80-100); Monocytes Absolute Auto 900 /uL (0-900); Monocytes Percent Auto 14.2 % (3-14); Neutrophils Absolute Auto 3800 /uL (1500-7000); Platelet Count 415 X10^3/uL (150-400); Red Blood Cell Count 4.76 X10^6/uL (4.5-5.9); White Blood Cell Count 6.3 X10^3/uL (4.5-11.0)
[2019-01-17] MEDS: ALBUTEROL/IPRATROPIUM 3 ML AMPUL INH (20:13)
[2019-01-17 20:14] VITALS: PULSE 96; RESP 28; O2SAT 96
[2019-01-17] MEDS: ALBUTEROL 0.5% CONTINUOUS NEB 20 MG INH (20:16)
[2019-01-17] MEDS: methylPREDNISolone 125 MG/2 ML VIAL IV (20:18)
[2019-01-17 20:27] LABS: BUN Creatinine Ratio 22.5 (6-22); Blood Urea Nitrogen 18 mg/dL (9-20); Calcium 9.5 mg/dL (8.4-10.2); Carbon Dioxide 24 mmol/L (22-32); Chloride 101 mmol/L (98-107); Creatine Kinase 133 U/L (55-170); Estimated Glomerular Filt Rate > 60.0 mL/min (>60); Glucose 131 mg/dL (80-110); HEMOLYSIS 26 (0-50); Magnesium 1.9 mg/dL (1.6-2.3); Potassium 3.9 mmol/L (3.4-5.1); Sodium 138 mmol/L (137-145)
[2019-01-17 20:30] VITALS: BP 113/82; PULSE 98; O2SAT 100
[2019-01-17 20:32] LABS: B Type Natriuretic Peptide < 100 (<100)
[2019-01-17 20:38] LABS: Lactate (Lactic Acid) 1.4 mmol/L (0.7-2.1)
[2019-01-17 20:39] LABS: Troponin I < 0.012 ng/mL (0.01-0.034)
[2019-01-17 20:42] LABS: CKMB % Relative Index 1.2 % (1.5-5.0); Creatine Kinase MB 1.64 ng/mL (<2.37)
[2019-01-17 21:13] LABS: Procalcitonin < 0.05 ng/mL (<0.5)
[2019-01-17 21:30] VITALS: BP 168/94; PULSE 87; RESP 18; O2SAT 92
[2019-01-17 22:00] VITALS: BP 143/78; PULSE 88; RESP 16; O2SAT 92
--- NOTE | 2019-01-17 22:14 | ED.SOB ---
HPI - SOB/Dyspnea General Chief Complaint: Shortness of Breath/Dyspnea Stated Complaint: CAN'T BREATHE Time Seen by Provider: 01/17/19 20:04 Source: patient Mode of arrival: ambulatory Limitations: no limitations History of Present Illness The patient has COPD. He is a former smoker. Today he developed progressive dyspnea. He has emptied his rescue inhaler. He has a nonproductive cough. He has no associated fever or chills. He has history of CAD with multiple MIs and multiple stents. He is not experiencing chest pain. He has no history of CHF. He has no orthopnea, he has no peripheral edema. He has not been ill until today. He has no confusion, no focal weakness, no other complaints. Related Data Home Medications Medication Instructions Recorded Confirmed aspirin 325 mg PO QDAY #0 06/07/11 ALBUTEROL SULFATE (#VENTOLIN HFA) 0.09 mg IH PRN #0 07/18/11 clopidogrel [Plavix] #0 07/02/16 tiotropium bromide [Spiriva with #0 09/27/17 HandiHaler] Previous Rx's Medication Instructions Recorded hydrocodone-acetaminophen [[place]] 1 - 2 tab PO Q6H PRN #10 tab 07/02/16 tamsulosin [Flomax] 0.4 mg PO QDAY #20 cap 09/11/16 Spacer: Inhaler Spacer Device units #1 09/27/17 doxycycline hyclate 100 mg PO Q12H #20 cap 09/27/17 prednisone 10 mg PO SEE INSTRUCTIONS 12 Days 09/27/17 #0 tab levofloxacin [Levaquin] 750 mg PO DAILY #5 tab 08/31/18 prednisone 50 mg PO DAILY #5 tab 08/31/18 albuterol sulfate 2 puff INHALATION Q4-6H PRN #8.5 10/24/18 gram ipratropium-albuterol 3 ml INHALATION Q4-6H PRN #180 ml 10/24/18 prednisone 40 mg PO DAILY #10 tab 10/24/18 prednisone 60 mg PO DAILY 5 Days #30 tab 01/17/19 Allergies Allergy/AdvReac Type Severity Reaction Status Date / Time No Known Drug Allergies Allergy Verified 08/31/18 21:39 Review of Systems Review of Systems ROS Unobtainable: All systems reviewed & are unremarkable except as noted in HPI and below Constitutional Denies chills, Denies fever(s), Denies lethargy and Denies weakness Eyes Denies change in vision ENT Ears, Nose, Mouth, and Throat: Denies change in voice, Reports dizziness, Reports nasal congestion, Denies neck pain and Denies sore throat Cardiovascular Denies chest pain, Denies irregular heart rhythm, Denies lightheadedness, Denies palpitations, Denies dyspnea, Reports dyspnea on exertion and Denies orthopnea Respiratory Reports cough, Denies dyspnea, Reports dyspnea on exertion and Reports wheezing Gastrointestinal Gastrointestinal: Denies abdominal pain, Denies change in bowel habits, Denies diarrhea, Denies nausea and Denies vomiting Musculoskeletal Denies neck pain Integumentary/Breasts Denies pruritus, Denies erythema, Denies rash and Denies wounds Neurologic Reports dizziness and Denies weakness Endocrine Denies palpitations Allergic/Immunologic Reports wheezing FOR[facility]LY [facility] Medical History COPD (chronic obstructive pulmonary disease) (Chronic) Coronary artery disease (Chronic) TARIQ (obstructive sleep apnea) (Chronic) Prostate cancer (Chronic) Family History (Updated 10/24/18 @ 17:59 by Kavita Castro PA-C) Other No pertinent family history Social History (Updated 09/01/18 @ 01:44 by Erica Miller DO) Smoking Status: Never smoker substance use type: does not use Family History Other No pertinent family history Social History Smoking Status: Never smoker substance use type: does not use Exam Initial Vital Signs Initial Vital Signs: Vital Signs Temperature 97.8 F 01/17/19 20:10 Pulse Rate 94 H 01/17/19 20:10 Respiratory Rate 30 H 01/17/19 20:10 Blood Pressure 185/88 H 01/17/19 20:10 Pulse Oximetry 95 01/17/19 20:10 Const General: cooperative and well developed Nutritional Appearance: well nourished Orientation: alert, awake and oriented x3 HENMT Head: normocephalic and atraumatic Ears: external ears normal and TM's normal bilaterally Nose: external nose normal and No nasal discharge Face and sinus: sinuses nontender, face symmetric and No dry mucous membranes Mouth: oral mucosae normal Teeth and gingiva: dentition normal Throat: tonsils normal and uvula midline Neck Neck: normal visual inspection, trachea midline, No lymphadenopathy, No midline deformity and No JVD Chest Chest: normal inspection of the chest Resp Effort & Inspection: normal respiratory effort, able to speak in complete sentences, respiratory distress and uses accessory muscles Auscultation: no rales, rhonchi and wheezes (Throughout both lung becerril.) Cardio Rate: regular rate Rhythm: regular rhythm Heart Sounds: no click, no gallops, no murmurs and no rubs Pulses: normal peripheral pulses GI Inspection: non-distended Palpation: soft, no hepatosplenomegaly and No guarding Auscultation: normal bowel sounds Back/Spine/Pelvis Back: No CVA tenderness Cervical Spine: cervical ROM normal Thoracic/Lumbar Spine: thoracic and lumbar spine normal to inspection Skin General: no rashes or lesions noted and No petechiae Neuro General: alert, oriented x3, gait normal and no focal motor deficits Speech: speech normal Extrem General: full ROM, no clubbing, cyanosis or edema, no pedal edema and no calf tenderness Psych Appearance: well kempt Mental Status: mental status grossly normal Attitude: cooperative Thought Content: normal and suicidality Judgment: judgment good Course Course Narrative: The patient is now 8 symptomatic after receiving multiple nebs and IV steroids. There is no suggestion of infection, exam, x-rays and labs have been benign he will be discharged home on prednisone as well as an albuterol inhaler. Orders Ordered: ED Orders 01/17/19 20:05 Consult to Respiratory Therapy Evaluate & Treat B Type Natriuretic Peptide Stat Basic Metabolic Panel Stat Complete Blood Count AUTO DIFF Stat Lactate (Lactic Acid) Stat Magnesium Stat Procalcitonin Stat Troponin & CK Cardiac Panel Stat EKG-12 Lead Stat 01/17/19 20:06 XR chest 1V Stat Sodium Chloride (Normal Saline 0.9%) 1,000 mls @ 150 mls/hr IV CONT SALLY Discontinued Medications Albuterol (Proventil 0.5% Neb Solution) 20 mg INH Q1H ONE Stop: 01/17/19 21:17 Last Admin: 01/17/19 20:16 Dose: 20 mg Albuterol/Ipratropium (Duoneb) 3 ml INH NOW ONE Stop: 01/17/19 20:05 Last Admin: 01/17/19 20:13 Dose: 3 ml Methylprednisolone (Solu-Medrol 125 Mg Vial) 125 mg IV NOW ONE Stop: 01/17/19 20:05 Last Admin: 01/17/19 20:18 Dose: 125 mg Vital Signs - 8 hr 01/17/19 20:10 01/17/19 20:14 01/17/19 20:30 Temperature 97.8 F Pulse Rate 94 H 96 H 98 H Respiratory Rate 30 H 28 H Blood Pressure 185/88 H Blood Pressure [Left Arm] 113/82 Pulse Oximetry 95 96 100 01/17/19 21:30 01/17/19 22:00 Temperature Pulse Rate 87 88 Respiratory Rate 18 16 Blood Pressure Blood Pressure [Left Arm] 168/94 H 143/78 H Pulse Oximetry 92 92 MDM - SOB/Dyspnea Lab Data Result diagrams: 01/17/19 20:05 01/17/19 20:05 Lab Results 01/17/19 01/17/19 01/17/19 Range/Units 20:05 20:05 20:05 WBC 6.3 (4.5-11.0) X10^3/uL RBC 4.76 (4.5-5.9) X10^6/uL Hgb 14.3 (13.5-17.5) g/dL Hct 42.7 (41-53) % MCV 89.7 (80-100) fL MCH 30.1 (26-34) PG MCHC 33.5 (30-36) % RDW 14.0 (11.6-14.8) % Plt Count 415 H (150-400) X10^3/uL Neut % (Auto) 60.0 (50-75) % Lymph % (Auto) 16.0 L (25-40) % Tompkins % (Auto) 14.2 H (3-14) % Eos % (Auto) 9.2 H (2-4) % Baso % (Auto) 0.6 (0-2) % Neut # (Auto) 3800 (7358-8679) /uL Lymph # (Auto) 1000 L (6334-0003) /uL Tompkins # (Auto) 900 (0-900) /uL Eos # (Auto) 600 H (0-450) /uL Baso # (Auto) 0 (0-100) /uL Sodium 138 (137-145) mmol/L Potassium 3.9 (3.4-5.1) mmol/L Chloride 101 (98-107) mmol/L Carbon Dioxide 24 (22-32) mmol/L BUN 18 (9-20) mg/dL Creatinine 0.80 (0.66-1.25) mg/dL Estimated GFR > 60.0 (>60) mL/min BUN/Creatinine Ratio 22.5 H (6-22) Glucose 131 H (80-110) mg/dL Lactate (0.7-2.1) mmol/L Calcium 9.5 (8.4-10.2) mg/dL Magnesium 1.9 (1.6-2.3) mg/dL Total Creatine Kinase 133 (55-170) U/L CK-MB (CK-2) 1.64 (<2.37) ng/mL CK-MB (CK-2) Rel Index 1.2 L (1.5-5.0) % Troponin I < 0.012 (0.01-0.034) ng/mL B-Natriuretic Peptide < 100 (<100) Procalcitonin < 0.05 (<0.5) ng/mL 01/17/19 Range/Units 20:05 WBC (4.5-11.0) X10^3/uL RBC (4.5-5.9) X10^6/uL Hgb (13.5-17.5) g/dL Hct (41-53) % MCV (80-100) fL MCH (26-34) PG MCHC (30-36) % RDW (11.6-14.8) % Plt Count (150-400) X10^3/uL Neut % (Auto) (50-75) % Lymph % (Auto) (25-40) % Tompkins % (Auto) (3-14) % Eos % (Auto) (2-4) % Baso % (Auto) (0-2) % Neut # (Auto) (1402-1100) /uL Lymph # (Auto) (7640-0650) /uL Tompkins # (Auto) (0-900) /uL Eos # (Auto) (0-450) /uL Baso # (Auto) (0-100) /uL Sodium (137-145) mmol/L Potassium (3.4-5.1) mmol/L Chloride (98-107) mmol/L Carbon Dioxide (22-32) mmol/L BUN (9-20) mg/dL Creatinine (0.66-1.25) mg/dL Estimated GFR (>60) mL/min BUN/Creatinine Ratio (6-22) Glucose (80-110) mg/dL Lactate 1.4 (0.7-2.1) mmol/L Calcium (8.4-10.2) mg/dL Magnesium (1.6-2.3) mg/dL Total Creatine Kinase (55-170) U/L CK-MB (CK-2) (<2.37) ng/mL CK-MB (CK-2) Rel Index (1.5-5.0) % Troponin I (0.01-0.034) ng/mL B-Natriuretic Peptide (<100) Procalcitonin (<0.5) ng/mL Imaging Data Chest x-ray: Radiologist's impression: [address] [address] XRay Report Signed Patient: Bebo Marcano [facility]#: [id number] : 1955cct:[id number] Age/Sex: 63 / MDate of Service: 01/17/19 Loc: ED Accession Number: [id number] Procedure: XR chest 1V Ordering Provider: Ed Osman MD PROCEDURE: XR CHEST 1V INDICATIONS: COPD. Dyspnea TECHNIQUE: One view of the chest was acquired. COMPARISON: None. FINDINGS: Surgical changes and devices: None. Lungs and pleura: Lungs are clear. No pleural effusions or pneumothorax. Mediastinum: Mediastinal contours appear normal. Heart size is normal. Bones and chest wall: No suspicious bony lesions. Overlying soft tissues appear unremarkable. IMPRESSION: No acute disease. Dictated by: Alfredito Flores M.D. on 01/17/2019 at 20:32 Approved by: Alfredito Flores M.D. on 01/17/2019 at 20:33 ECG Data Attestation: I personally reviewed and interpreted this ECG as follows: (Normal sinus rhythm rate 93 beats per minute. No ectopy. Normal intervals. No acute ST T wave changes.) Discharge Plan Departure Clinical Impression: COPD exacerbation Instructions: DI for Chronic Obstructive Pulmonary Disease Activity Restrictions/Additional Instructions: Albuterol 2 puffs every 3-4 hours as needed for dyspnea/wheezes. Prednisone 60 mg daily for 5 days. Follow-up with your doctor in about 1 week. Return here if worse. Prescriptions: New prednisone 20 mg tablet 60 mg PO DAILY 5 Days Qty: 30 RF: 0 No Action aspirin 325 MG tablet,delayed release (DR/EC) 325 mg PO QDAY Qty: 0 RF: 0 ALBUTEROL SULFATE (#VENTOLIN HFA) 0.09 mg IH PRN Qty: 0 RF: 0 clopidogrel [Plavix] 75 MG tablet Qty: 0 RF: 0 hydrocodone-acetaminophen [[place]] 5 MG/325 MG tablet 1 - 2 tab PO Q6H PRNQty: 10 RF: 0 tamsulosin [Flomax] 0.4 MG capsule,extended release 24hr 0.4 mg PO QDAY Qty: 20 RF: 0 tiotropium bromide [Spiriva with HandiHaler] 18 MCG capsule, w/inhalation device Qty: 0 RF: 0 prednisone 10 MG tablet 10 mg PO SEE INSTRUCTIONS 12 Days Qty: 0 RF: 0 doxycycline hyclate 100 MG capsule 100 mg PO Q12H Qty: 20 RF: 0 Spacer: Inhaler Spacer Device Qty: 1 RF: 0 prednisone 50 mg tablet 50 mg PO DAILY Qty: 5 RF: 0 levofloxacin [Levaquin] 750 mg tablet 750 mg PO DAILY Qty: 5 RF: 0 ipratropium-albuterol 0.5 mg-3 mg(2.5 mg base)/3 mL solution for nebulization 3 ml INHALATION Q4-6H PRN (Reason: shortness of breath or wheezing) Qty: 180 RF: 0 prednisone 20 mg tablet 40 mg PO DAILY Qty: 10 RF: 0 albuterol sulfate 90 mcg/actuation HFA aerosol inhaler 2 puff INHALATION Q4-6H PRN (Reason: shortness of breath or wheezing) Qty: 8.5 RF: 0 Referrals: Kary Turner PA-C [Primary Care Provider] -
[2019-01-17 23:30] VITALS: BP 154/80; PULSE 81; RESP 20; O2SAT 92
[2019-01-18] MEDS: IPRATROPIUM/ALBUTEROL PREPACK 1 BOX MISC (00:25)
[2019-01-18 01:04] VITALS: BP 175/97; PULSE 62; RESP 20; O2SAT 97
== END 2019-01-18 01:07 | disposition home or self-care (01) ==
PROVIDERS: Emergency Provider Emergency Medicine; PCP Physician Assistant Medical
DX: J44.1 Chronic obstructive pulmonary disease with (acute) exacerbation (principal); I25.2 Old myocardial infarction
CPT/HCPCS: 36591; 71045; 80048; 82550; 82553; 83605; 83735; 83880; 84145; 84484; 85025; 93005; 93010; 94640; 96374; 99283; 99284; J2930; J7611

== ENCOUNTER → 2022-10-08 12:53 | Outpatient (CLI) | payer MEDICARE, SELFPAY ==
--- NOTE | 2022-10-08 | DI.US.S_ITS ---
PROCEDURE: US ABD AORTA ANEURYSM SCREEN INDICATIONS: PERSONAL HISTORY OF NICOTINE DEPENDENCY TECHNIQUE: Real time scanning was performed of the aorta and iliac arteries, with image documentation. COMPARISON: None. FINDINGS: Aorta: Proximal aortic diameter measures 1.4 cm. Mid-aorta measures 1 cm. Distal aortic diameter is 0.9 cm. Iliac arteries: Right common iliac artery measures 0.8 cm. Left common iliac artery measures 0.8 cm. IMPRESSION: Negative for aneurysm. Dictated by: Juan Pennington M.D. on 10/08/2022 at 12:44 Approved by: Juan Pennington M.D. on 10/08/2022 at 12:44
== END ==
PROVIDERS: PCP Physician Assistant Medical; Referring Provider Internal Medicine Cardiovascular Disease; Visit Provider Internal Medicine Cardiovascular Disease
DX: Z13.6 Encounter for screening for cardiovascular disorders (principal); Z87.891 Personal history of nicotine dependence
CPT/HCPCS: 76706

== ENCOUNTER → 2022-11-25 14:48 | Outpatient (CLI) | payer MEDICARE, SELFPAY ==
--- NOTE | 2022-12-01 08:10 | PM.PFT.1 ---
Pulmonary Function Test Referral & Results Date Patient Seen: 11/25/22 Results: The spirometry demonstrates an FVC of 3.29 L which is 66% of predicted. The FEV1 was measured at 1.67 L which is 65% of predicted. The FEV1/FVC ratio was 51 which is 68% of predicted. Following the administration of bronchodilator there was 46% improvement in FEV1 and a 217% improvement in FEF 25-75%. Lung volumes show an SVC of 3.99 L which is 79% of predicted. The diffusing capacity was measured at 35 which is 96% of predicted. The maximum voluntary ventilation was reduced Interpretation: This study demonstrates moderately severe obstructive lung disease with evidence of significant benefit following bronchodilator as above There is also moderate reduction in lung volumes suggesting the presence of aroa-if-[id number] restrictive lung disease Diffusing capacity is normal Clinical correlation suggested
== END ==
PROVIDERS: PCP Physician Assistant Medical; Referring Provider Internal Medicine Cardiovascular Disease; Visit Provider Internal Medicine Cardiovascular Disease
DX: R06.02 Shortness of breath (principal); Z87.891 Personal history of nicotine dependence; J98.8 Other specified respiratory disorders
CPT/HCPCS: 94060; 94726; 94729

== ENCOUNTER → 2024-12-12 07:47 | Outpatient (CLI) | payer MEDICARE, SELFPAY ==
--- NOTE | 2024-12-12 07:51 | DI.ECHO.S_ITS ---
[place] [facility] : : [address] : [place] : : [id number] : : Phone: [phone] Echocardiogram Report + + :Name: TESSA PATRICIA Study Date: 12/12/2024 Height: 73 in : :[facility] ReadingLocation: Weight: 235 lb : : Gender: Male BSA: 2.3 m2 : :: 1955 Age: 69 yrs BP: 117/76 mmHg: :Reason For Study: CORONARY ARTERY DISEASE : :Ordering Physician: DIONE, : :SHAWN Comer P.A-C Performed By: Alyx Ocampo : :Referring: SHAWN PARHAM P.A-C : + + Interpretation Summary The ejection fraction is estimated to be 55-60%. There is basal inferior wall hypokinesis. Diastolic function could not be accurately assessed due to unobtainable data. The left atrium is mildly dilated. The right ventricle is normal in size and function. There is moderate aortic valve sclerosis. Pulmonary artery pressures cannot be estimated because of the lack of a measurable TR jet velocity but the IVC suggests a CVP of around 3 mmHg. The ascending aorta is mildly enlarged, 3.8 cm. Compared to the prior study 10/13/2022, no significant change. Procedure: A two-dimensional transthoracic echocardiogram with color flow and Doppler was performed. The study quality was technically adequate. Comparison is made with the echocardiogram of 10/13/2022. The patient was in sinus rhythm with heart rates between 65-71 bpm during the exam. Left Ventricle: The left ventricle is normal in size and wall thickness. The ejection fraction is estimated to be 55-60%. There is basal inferior wall hypokinesis. Diastolic function could not be accurately assessed due to unobtainable data. Right Ventricle: The right ventricle is normal in size and function. Atria: The left atrium is mildly dilated. Right atrial size is normal. There is no Doppler evidence for an interatrial shunt. Mitral Valve: The mitral valve leaflets are mildly calcified. There is mild mitral annular calcification. There is trace mitral regurgitation. Aortic Valve: The aortic valve is trileaflet. The aortic valve is moderately calcified. There is moderate aortic valve sclerosis. There is no hemodynamically significant valvular aortic stenosis. The peak aortic velocity is 2.3 m/sec. The aortic valve mean gradient is 12 mmHg. No aortic regurgitation is present. Tricuspid Valve: The tricuspid valve leaflets are thin and pliable. There is trace tricuspid regurgitation. Pulmonary artery pressures cannot be estimated because of the lack of a measurable TR jet velocity but the IVC suggests a CVP of around 3 mmHg. Pulmonic Valve: The pulmonic valve leaflets are thin and pliable; valve motion is normal. There is no pulmonic valvular regurgitation. Great Vessels: The aortic root is normal size. The ascending aorta is mildly enlarged. The IVC is of normal diameter and collapses greater than 50% with a sniff. This suggests a low right atrial pressure of 3 mm Hg. Pericardium/ Pleura There is no pericardial effusion. There is no pleural effusion. MMode/2D Measurements & Calculations LVIDd: 4.4 cm LVOT diam: 2.3 cm LVIDs: 3.0 cm Ao root diam: 4.0 cm FS: 32.3 % asc Aorta Diam: 3.7 cm IVSd: 0.99 cm Ao Arch Diam (Prox Trans): 3.3 cm LVPWd: 1.1 cm LV vilchis. diameter/BSA (cm/m^2): 1.9 LV sys. diameter/BSA (cm/m^2): 1.3 LA A2 area: 27.1 cm2 RA long axis: 5.8 cm LA A4 area: 24.6 cm2 RA area: 21.1 cm2 LA length (vol): 6.8 cm RA vol: 65.5 ml LA vol: 83.3 ml RA : 28.4 ml/m2 LA vol index: 36.1 ml/m2 IVC diam: 1.8 cm RVD1 (basal): 3.9 cm RVD2 (mid): 3.0 cm TAPSE: 1.7 cm Doppler Measurements & Calculations Ao V2 max: 231.1 cm/sec LVOT Max Nikolas: 98.8 cm/sec Ao V2 mean: 164.3 cm/sec LV V1 max P.9 mmHg Ao max P.8 mmHg LV V1 VTI: 26.6 cm Ao mean P.7 mmHg ADRIÁN(I,D): 2.1 cm2 Ao V2 VTI: 53.0 cm ADRIÁN(V,D): 1.8 cm2 sev ratio: 0.50 ADRIÁN indexed to BSA (cm^2/m^2): 0.93 MV E max nikolas: 94.2 cm/sec TR max nikolas: 309.5 cm/sec MV A max nikolas: 74.9 cm/sec TR max P.3 mmHg MV E/A: 1.3 PA V2 max: 83.8 cm/sec Med Peak E' Nikolas: 8.2 cm/sec PA V2 mean: 58.5 cm/sec E/E' med: 11.5 PA mean P.5 mmHg Lat Peak E' Nikolas: 8.2 cm/sec PA pr(Accel): 26.3 mmHg E/E' lat: 11.5 E/e' average: 11.5 MV dec time: 0.25 sec MVA(VTI): 3.0 cm2 MV V2 mean: 68.1 cm/sec SV(LVOT): 113.7 ml MV mean P.1 mmHg MV V2 VTI: 37.3 cm Reading Physician:05:29 PM
--- NOTE | 2024-12-12 07:52 | DI.NM.S_ITS ---
PROCEDURE: NM ENEIDA PERF SPECT R&S PHARM Rest and pharmacological stress myocardial perfusion SPECT with gated imaging and ejection fraction RADIOPHARMACEUTICAL: 12.3 mCi Tc-99m tetrafosmin IV at rest and 24.3 mCi Tc-99m tetrafosmin IV at peak effect of pharmacological stress. A [id number] was performed. INDICATIONS: CAD TECHNIQUE: Radiopharmaceutical was injected at peak stress test, and also at rest. SPECT images were obtained. SPECT myocardial perfusion images were displayed in short axis, horizontal long axis, and vertical long axis views. Gated images were reviewed using [employer] software. COMPARISON: None. CARDIAC STRESS: A pharmacologic stress test was performed under the supervision of an attending staff, using an infusion of regadenoson 0.4 mg IV. Hemodynamic data: There is normal blood pressure and heart rate response to pharmacologic stress. Symptoms: The patient denied anginal chest pain. EKG: No diagnostic changes of ischemia; no ectopy. FINDINGS: Raw data: There is good myocardial uptake of radiotracer. No significant motion artifacts. Jztm-li-vymdh ratio is 0.26 (normal is less than 0.38 for tetrafosmin tracer). Left ventricle function: Gated images demonstrate normal left ventricular wall thickening. No segmental wall motion abnormalities. No transient ischemic dilation; TID is 1.08 (normal less than 1.3). Left ventricle resting end diastolic volume is 109 mL. Left ventricle stress ejection fraction is 69%; normal range is above 45%. Myocardial perfusion: There is a medium sized, moderate intensity fixed basal to mid inferior wall defect that resolves in prone imaging. No reversible perfusion defects. IMPRESSION: Low risk study. No evidence of pharmacologic induced ischemia. The fixed inferior wall defect completely resolves in prone imaging making it most consistent with diaphragmatic attenuation. Normal LV size and function. Dictated by: Hannah Belle D.O. on 12/12/2024 at 17:11 Approved by: Hannah Belle D.O. on 12/12/2024 at 17:17
== END ==
LOC: ECHO 07:50
PROVIDERS: PCP Physician Assistant Medical; Referring Provider Physician Assistant; Visit Provider Physician Assistant
DX: I34.81 Nonrheumatic mitral (valve) annulus calcification (principal); I35.8 Other nonrheumatic aortic valve disorders; I77.89 Other specified disorders of arteries and arterioles; I70.0 Atherosclerosis of aorta; I25.10 Atherosclerotic heart disease of native coronary artery without angina pectoris; Z87.891 Personal history of nicotine dependence
CPT/HCPCS: 78452; 93017; 93306; A9502; J2785